=== PATIENT | male | born 1995 | race African-American/Black ===

== ENCOUNTER 2020-08-15 13:44 | Outpatient (REF) | payer MEDICARE, MEDICAID, SELFPAY | END 2020-08-15 13:45 | disposition home or self-care (01) | LOC: HO.LAB 13:44 | PROVIDERS: PCP Internal Medicine Hematology; Visit Provider Internal Medicine | DX: Z20.822 Contact with and (suspected) exposure to COVID-19 (principal) | CPT/HCPCS: 36415; C9803; U0003 ==

== ENCOUNTER 2021-03-30 23:02 | Emergency (ER) | payer MEDICARE, MEDICAID, SELFPAY ==
[2021-03-30 23:04] VITALS: BP 125/79; PULSE 98; RESP 16; TEMP 37.1; O2SAT 99; BMI 20.7
[2021-03-31 00:20] VITALS: BP 115/65; PULSE 80; RESP 16; TEMP 36.8; O2SAT 99
--- NOTE | 2021-03-31 00:35 | ED.GENADULT ---
HPI - General Adult General Chief complaint: General Medical <Paul Mendoza MD - Last Filed: 03/31/21 02:25> Stated complaint: sickle cell pain <Paul Mendoza MD - Last Filed: 03/31/21 02:25> Time Seen by Provider: 03/31/21 00:22 <Paul Mendoza MD - Last Filed: 03/31/21 02:25> Source: patient <Paul Mendoza MD - Last Filed: 03/31/21 02:25> Mode of arrival: ambulatory <Paul Mendoza MD - Last Filed: 03/31/21 02:25> Limitations: no limitations <Paul Mendoza MD - Last Filed: 03/31/21 02:25> History of Present Illness HPI narrative: Patient with history of sickle cell disease under the care of Dr. Handley at [facility]. He states he is having a sickle cell flare with pain in his right leg. Patient states this is typical for the sickle cell flare. No recent fevers or chills. No chest pain or shortness of breath or cough No precipitating factors for his leg pain. No injuries. No calf pain. He went to [facility] ER yesterday but the wait was very long so he left. He comes in today because he cannot wait until he can go to Dr. Handley's office tomorrow because the pain is too severe. The patient states he typically receives IV fluids, IV Dilaudid, IV Benadryl, and IV Zofran. He has not had a transfusion in a long time. <Paul Mendoza MD - Last Filed: 03/31/21 02:25> Related Data Allergies/adverse reactions: Allergies Allergy/AdvReac Type Severity Reaction Status Date / Time No Known Allergies Allergy Unverified 04/07/20 19:26 [No Known Allergies*] <Paul Mendoza MD - Last Filed: 03/31/21 02:25> Review of Systems Constitutional: Constitutional: Denies fatigue and Denies fever(s) <Paul Mendoza MD - Last Filed: 03/31/21 02:25> Cardiovascular: Cardiovascular: Denies chest pain and Denies dyspnea <Paul Mendoza MD - Last Filed: 03/31/21 02:25> Respiratory: Respiratory: Denies cough and Denies dyspnea <Paul Mendoza MD - Last Filed: 03/31/21 02:25> Gastrointestinal: Gastrointestinal: Denies abdominal pain, Denies nausea and Denies vomiting <Paul Mendoza MD - Last Filed: 03/31/21 02:25> Musculoskeletal: Comments: Right lower leg pain <Paul Mendoza MD - Last Filed: 03/31/21 02:25> Neurologic: Comments: No weakness numbness or paresthesias <Paul Mendoza MD - Last Filed: 03/31/21 02:25> Endocrine: Endocrine: Denies fatigue <Paul Mendoza MD - Last Filed: 03/31/21 02:25> Hematologic/Lymphatic: Comments: History of sickle cell disease <Paul Mendoza MD - Last Filed: 03/31/21 02:25> [facility] Past Medical History Medical History: Medical History (Updated 03/31/21 @ 05:22 by Renu Miranda MD) Sickle cell anemia <Paul Mendoza MD - Last Filed: 03/31/21 02:25> Social History Social History: Social History Patient Tobacco Use Status: Never used Tobacco Advance Directives: No Advance Directives Information Provided: No <Paul Mendoza MD - Last Filed: 03/31/21 02:25> Physical Exam Vital Signs: Vital Signs: Last Vital Signs Temp 98.5 F 03/31/21 01:41 Pulse 78 03/31/21 01:41 Resp 16 03/31/21 01:41 BP 109/57 L 03/31/21 01:41 Pulse Ox 96 03/31/21 01:41 Body Mass Index 20.7 <Paul Mendoza MD - Last Filed: 03/31/21 02:25> Vital Signs: Last Vital Signs Temp 98.5 F 03/31/21 01:41 Pulse 78 03/31/21 01:41 Resp 16 03/31/21 01:41 BP 109/57 L 03/31/21 01:41 Pulse Ox 96 03/31/21 01:41 Body Mass Index 20.7 <Renu Miranda MD - Last Filed: 03/31/21 05:24> Const: Other: Awake alert. No acute distress. <Paul Mendoza MD - Last Filed: 03/31/21 02:25> General: cooperative <Paul Mendoza MD - Last Filed: 03/31/21 02:25> Limitations: no limitations <Paul Mendoza MD - Last Filed: 03/31/21 02:25> HENMT: Other: Normocephalic atraumatic without obvious abnormality <Paul Mendoza MD - Last Filed: 03/31/21 02:25> Eyes: Other: Scleral icterus <Paul Mendoza MD - Last Filed: 03/31/21 02:25> Chest: Other: Chest nontender <Paul Mendoza MD - Last Filed: 03/31/21 02:25> Resp: Other: Clear and equal bilaterally without wheezes rales or rhonchi <Paul Mendoza MD - Last Filed: 03/31/21 02:25> Cardio: Other: Regular rate and rhythm without murmurs rubs or gallops <Paul Mendoza MD - Last Filed: 03/31/21 02:25> GI: Other: Soft nontender nondistended. Normoactive bowel sounds. No organomegaly <Paul Mendoza MD - Last Filed: 03/31/21 02:25> Skin: Other: No skin changes. No warmth or erythema. <Paul Mendoza MD - Last Filed: 03/31/21 02:25> Neuro: Other: Alert and oriented x3. Moving all 4 extremities normally. <Paul Mendoza MD - Last Filed: 03/31/21 02:25> Extrem: Other: Mild tenderness to the anterior lower leg. No edema or swelling noted. No calf tenderness. <Paul Mendoza MD - Last Filed: 03/31/21 02:25> Course Course Course Narrative: Likely sickle cell flare. He has no evidence of chest syndrome. Will order retake count. Will medicate this patient request. IV saline. IV Dilaudid. IV Benadryl. IV Zofran Review of the prescription monitoring program shows patient gets weekly prescriptions for oxycodone stable lead from the same set of prescribers in his hematology office. Old records from [facility] will be ordered. 2:16 a.m.. Records from [facility] show he left prior to being treated yesterday. No other records available at this time. He states he is feeling slightly better but typically requires up to 3 rounds of medication before discharge. I will order 1 more round of Dilaudid. And re-evaluate 2:25 a.m.. Signed out at change of shift pending re-evaluation <Paul Mendoza MD - Last Filed: 03/31/21 02:25> Reevaluation(s) Reevaluation #1: On review of all investigations as well as re-evaluation there are no acute findings to suggest sickle cell crisis and patient is currently comfortable with no evidence of aplastic or sequestration crisis. Patient is afebrile without chest pain. Patient otherwise discharged in stable condition with instructions to follow-up with his moisture meter reader. <Renu Miranda MD - Last Filed: 03/31/21 05:24> Time: 05:19 <Renu Miranda MD - Last Filed: 03/31/21 05:24> Medical Decision Making Lab Data Result diagrams: : 03/31/21 03:35 03/31/21 03:35 <Paul Mendoza MD - Last Filed: 03/31/21 02:25> Labs: Lab Results 03/31/21 03/31/21 Range/Units 03:35 03:35 WBC 12.1 H (4.8-10.8) X10*3/uL RBC 2.62 L (4.60-5.80) X10*6/uL Hgb 8.6 L (14.0-18.0) g/dl Hct 24.3 L (42-52) % MCV 92.7 (80-98) fL MCH 32.8 (27.0-33.0) pg MCHC 35.4 (31.0-36.0) g/dl RDW 20.6 H (11.0-16.0) % Plt Count 424 H (160-400) X10*3/uL MPV 10.6 (9.4-12.4) fL Immature Gran % (Auto) 0.8 H (0.0-0.4) % Neut % (Auto) 52.2 (45-73) % Lymph % (Auto) 33.6 (20-40) % Tyler % (Auto) 10.9 (2-11) % Eos % (Auto) 2.3 (0-4) % Baso % (Auto) 0.2 (0-2) % Lymph # (Auto) 4.1 (1.2-4.9) X10*3/uL Tyler # (Auto) 1.3 H (0.1-1.2) X10*3/uL Eos # (Auto) 0.3 (0.0-0.4) X10*3/uL Baso # (Auto) 0.0 (0.0-0.2) X10*3/uL Abs Immat Gran (auto) 0.10 H (0.00-0.03) X10*3/uL Absolute Neuts (auto) 6.3 (2.0-8.3) X10*3/uL Absolute Nucleated RBC 0.220 H (0.0-0.012) X10*3/uL Nucleated RBC % (auto) 1.8 H (0.0-0.2) /100WBC Smear Tech's Comments VERIFIED Absolute Retic 0.563 H (0.026-0.095) X10*6/uL Percent Retic 21.5 H (0.5-1.8) % Immature Retic Fraction 30.7 H (2.3-13.4) % Retic Hgb Equivalent 35.3 H (30.0-35.0) pg Sodium 141 (135-145) mmol/L Potassium 4.5 (3.3-5.1) mmol/L Chloride 109 H (96-108) mmol/L Carbon Dioxide 23 (22-29) mmol/L Anion Gap 14 (12-20) BUN 8 L (9-16) mg/dL Creatinine 0.79 (0.5-1.4) mg/dL Estim Creat Clear Calc 126.1 Estimated GFR > 60 Random Glucose 99 (60-115) mg/dL Calcium 9.2 (8.4-10.2) mg/dL Total Bilirubin 5.8 H (0.0-1.0) mg/dL AST 36 (5-37) U/L ALT 15 (0-40) U/L Alkaline Phosphatase 78 (39-117) U/L Total Protein 7.4 (6.5-8.0) g/dL Albumin 4.3 (3.5-5.0) g/dL <Paul Dawson Mendoza MD - Last Filed: 03/31/21 02:25> Lab Results 03/31/21 03/31/21 Range/Units 03:35 03:35 WBC 12.1 H (4.8-10.8) X10*3/uL RBC 2.62 L (4.60-5.80) X10*6/uL Hgb 8.6 L (14.0-18.0) g/dl Hct 24.3 L (42-52) % MCV 92.7 (80-98) fL MCH 32.8 (27.0-33.0) pg MCHC 35.4 (31.0-36.0) g/dl RDW 20.6 H (11.0-16.0) % Plt Count 424 H (160-400) X10*3/uL MPV 10.6 (9.4-12.4) fL Immature Gran % (Auto) 0.8 H (0.0-0.4) % Neut % (Auto) 52.2 (45-73) % Lymph % (Auto) 33.6 (20-40) % Tyler % (Auto) 10.9 (2-11) % Eos % (Auto) 2.3 (0-4) % Baso % (Auto) 0.2 (0-2) % Lymph # (Auto) 4.1 (1.2-4.9) X10*3/uL Tyler # (Auto) 1.3 H (0.1-1.2) X10*3/uL Eos # (Auto) 0.3 (0.0-0.4) X10*3/uL Baso # (Auto) 0.0 (0.0-0.2) X10*3/uL Abs Immat Gran (auto) 0.10 H (0.00-0.03) X10*3/uL Absolute Neuts (auto) 6.3 (2.0-8.3) X10*3/uL Absolute Nucleated RBC 0.220 H (0.0-0.012) X10*3/uL Nucleated RBC % (auto) 1.8 H (0.0-0.2) /100WBC Smear Tech's Comments VERIFIED Absolute Retic 0.563 H (0.026-0.095) X10*6/uL Percent Retic 21.5 H (0.5-1.8) % Immature Retic Fraction 30.7 H (2.3-13.4) % Retic Hgb Equivalent 35.3 H (30.0-35.0) pg Sodium 141 (135-145) mmol/L Potassium 4.5 (3.3-5.1) mmol/L Chloride 109 H (96-108) mmol/L Carbon Dioxide 23 (22-29) mmol/L Anion Gap 14 (12-20) BUN 8 L (9-16) mg/dL Creatinine 0.79 (0.5-1.4) mg/dL Estim Creat Clear Calc 126.1 Estimated GFR > 60 Random Glucose 99 (60-115) mg/dL Calcium 9.2 (8.4-10.2) mg/dL Total Bilirubin 5.8 H (0.0-1.0) mg/dL AST 36 (5-37) U/L ALT 15 (0-40) U/L Alkaline Phosphatase 78 (39-117) U/L Total Protein 7.4 (6.5-8.0) g/dL Albumin 4.3 (3.5-5.0) g/dL <Renu Miranda MD - Last Filed: 03/31/21 05:24> Discharge Plan Discharge Clinical Impression: Sickle cell pain crisis <Paul Mendoza MD - Last Filed: 03/31/21 02:25> Patient Disposition: Home, Self-Care <Paul Mendoza MD - Last Filed: 03/31/21 02:25> Instructions: Sickle Cell Crisis (ED) <Paul Mendoza MD - Last Filed: 03/31/21 02:25> Additional Instructions: 1. Resume all home medications as prescribed. 2. Follow-up with Dr. Handley today for re-evaluation. Return to the ER for acute worsening of symptoms. <Paul Mendoza MD - Last Filed: 03/31/21 02:25>
[2021-03-31] MEDS: diphenhydrAMINE HCL 50 MG/ML VIAL 25 MG IVPUSH (01:07)
[2021-03-31] MEDS: 0.9 % Sodium Chloride 1,000 ML 999 ML IV (01:07)
[2021-03-31] MEDS: HYDROmorphone HCl 2 MG/ML VIAL IVPUSH ×2 (01:07→02:50)
[2021-03-31] MEDS: ondansetron HCL 4 MG/2 ML VIAL IVPUSH (01:07)
--- NOTE | 2021-03-31 01:15 | PC.NURSE ---
PT MEDICATED PER MAR, IVF INFUSING WITHOUT DIFFICULTY. AWAITING IMPROVMENT INSYMPTOMS.
[2021-03-31 01:41] VITALS: BP 109/57; PULSE 78; RESP 16; TEMP 36.9; O2SAT 96
[2021-03-31 03:39] LABS: Basophils Percent Auto 0.2 % (0-2); Eosinophils Absolute Auto 0.3 X10*3/uL (0.0-0.4); Eosinophils Percent Auto 2.3 % (0-4); Hematocrit 24.3 % (42-52); Hemoglobin 8.6 g/dl (14.0-18.0); Imm Gran Pct Auto 0.8 % (0.0-0.4); Immature Retic Fraction 30.7 % (2.3-13.4); Lymphocytes Absolute Auto 4.1 X10*3/uL (1.2-4.9); Lymphocytes Percent Auto 33.6 % (20-40); Mean Corpuscular HGB Conc 35.4 g/dl (31.0-36.0); Mean Corpuscular Hemoglobin 32.8 pg (27.0-33.0); Mean Corpuscular Volume 92.7 fL (80-98); Mean Platelet Volume 10.6 fL (9.4-12.4); Monocytes Absolute Auto 1.3 X10*3/uL (0.1-1.2); Monocytes Percent Auto 10.9 % (2-11); Neutrophils Absolute Auto 6.3 X10*3/uL (2.0-8.3); Neutrophils Percent Auto 52.2 % (45-73); Platelet Count 424 X10*3/uL (160-400); Red Blood Count 2.62 X10*6/uL (4.60-5.80); Red Cell Distribution Width 20.6 % (11.0-16.0); Retic HGB Equivalent 35.3 pg (30.0-35.0); Reticulocyte Percent 21.5 % (0.5-1.8); Reticulocytes Absolute 0.563 X10*6/uL (0.026-0.095); WBC ABN SCTR 1
[2021-03-31 03:40] LABS: NRBC Pct Auto 1.8 /100WBC (0.0-0.2)
[2021-03-31 03:41] LABS: MANUAL DIFF FLAG SCAN; WBC ABN SCTR FOR CBC 1
--- NOTE | 2021-03-31 03:48 | PC.NURSE ---
patient requesting an additional dose of pain medication and to be given discharge paperwork. phlebotomy at bedside attempting to draw labs. provider stating that awaiting lab work prior to discharge paperwork
[2021-03-31 03:59] LABS: SLIDE REVIEW VERIFIED; White Blood Count 12.1 X10*3/uL (4.8-10.8)
[2021-03-31 04:00] LABS: Alanine Aminotransferase 15 U/L (0-40); Albumin Level 4.3 g/dL (3.5-5.0); Alkaline Phosphatase 78 U/L (39-117); Anion Gap 14 (12-20); Aspartate Amino Transferase 36 U/L (5-37); Bilirubin Total 5.8 mg/dL (0.0-1.0); Blood Urea Nitrogen 8 mg/dL (9-16); Calcium 9.2 mg/dL (8.4-10.2); Carbon Dioxide 23 mmol/L (22-29); Chloride 109 mmol/L (96-108); Creatinine Clr Calc Pharmacy 126.1; Estimated Glomerular Filt Rate > 60; Glucose Random 99 mg/dL (60-115); Potassium 4.5 mmol/L (3.3-5.1); Sodium 141 mmol/L (135-145); Total Protein 7.4 g/dL (6.5-8.0)
== END 2021-03-31 05:42 | disposition home or self-care (01) ==
PROVIDERS: Emergency Provider Emergency Medicine; PCP Internal Medicine
DX: D57.80 Other sickle-cell disorders without crisis (principal); M79.604 Pain in right leg; Z79.899 Other long term (current) drug therapy
CPT/HCPCS: 36415; 80053; 85025; 85045; 96361; 96374; 96375; 96376; 99284; J1170; J1200; J2405